=== PATIENT | male | born 1960 | race Caucasian/White ===

== ENCOUNTER 2016-10-09 07:03 | Emergency (ER) | payer OTHER ==
[~2016-10-09] VITALS: Ht 175.3 cm; Wt 88.5 kg
--- NOTE | 2016-10-09 07:23 | ED CARDIAC/CP/PALPITATIONS ---
History of Present Illness General Chief Complaint: Palpitations Stated Complaint: HEART PALPITATIONS,SOB, HTN;TROUBLE SLEEPING Source: patient Exam Limitations: no limitations Vital Signs & Intake/Output Vital Signs & Intake/Output Vital Signs Date Time Temp Pulse Resp B/P Pulse O2 O2 Flow FiO2 Ox Delivery Rate 10/09 0759 98.0 108 18 137/97 97 Room Air 10/09 0758 137/97 10/09 0758 155 137/97 10/09 0733 99 Room Air 10/09 0715 97.5 136 18 132/103 100 Room Air Allergies Coded Allergies: No Known Allergies (10/09/16) Triage Note: 56 YEAR OLD MALE TO ER WITH COMPLAINTS OF 3 DAYS OF FEELING HEART PALPTATIONS, AND SOB. DENIES CP.PT DIRECTLY TO EKG [place]. PT ALSO STATES THAT HIS BP HAS BEEN ELEVATED AND DENIES ANY HISTORY OF HTN. DR STREETER AT BEDSIDE Triage Nurses Notes Reviewed? yes HPI: Patient presents for evaluation of heart palpitations and been more or less constant since abrupt onset 2 days ago. Patient has tried Valsalva maneuvers without improvement. He states he has had multiple prior episodes like this that typically resolves with Valsalva. He denies any associated chest pain or shortness of breath. He hasn't seen a physician in close to 10 years. The heart palpitations are described as severe and appear to interfere with sleep. Past History Travel History Traveled to [place] past 21 day No Medical History Any Pertinent Medical History? see below for history Neurological: NONE EENT: cataracts Cardiovascular: NONE Respiratory: NONE Gastrointestinal: hiatal hernia Hepatic: NONE Renal: NONE Musculoskeletal: NONE Psychiatric: NONE Endocrine: NONE Blood Disorders: NONE Cancer(s): NONE STAFFING DIRECTOR/Reproductive: NONE Surgical History Surgical History: non-contributory Psychosocial History What is your primary language South [place] Tobacco Use: Never used ETOH Use: heavy use Illicit Drug Use: denies illicit drug use Family History Hx Contributory? No Review of Systems Review of Systems Constitutional: Reports: no symptoms. EENTM: Reports: no symptoms. Respiratory: Reports: no symptoms. Cardiovascular: Reports: see HPI. GI: Reports: no symptoms. Genitourinary: Reports: no symptoms. Musculoskeletal: Reports: no symptoms. Skin: Reports: no symptoms. Neurological/Psychological: Reports: no symptoms. Hematologic/Endocrine: Reports: no symptoms. Immunologic/Allergic: Reports: no symptoms. All Other Systems: Reviewed and Negative Physical Exam Physical Exam Cardiovascular: see below Comments: Gen.: Well-nourished, well-developed, no acute respiratory distress. Head: Normocephalic, atraumatic. Eyes: Normal inspection bilaterally Ears: Normal inspection bilaterally Nose: Normal inspection Throat/mouth : Moist mucosa Neck: Supple, full range of motion, no goiter Heart: Rapid but otherwise Regular rate and rhythm, no murmurs rubs or gallops Lungs: Clear to auscultation bilaterally with normal air entry Chest: Nontender Back: Normal range of motion Abdomen: Soft, nontender, nondistended, normal bowel sounds Extremities: Normal range of motion grossly, equal radial pulses, no cyanosis clubbing or edema Neurologic: Cranial nerves grossly intact, speech is clear Skin: warm and dry Psychiatric: Calm, cooperative, no apparent delusions or hallucinations Core Measures ACS in differential dx? No Severe Sepsis Present: No Septic Shock Present: No Progress Differential Diagnosis: sinus tachycardia versus SVT with a 2 to one block, DEHYDRATION, ALCOHOL WITHDRAWAL, ACUTE CORONARY SYNDROME Plan of Care: Orders Procedure Date/time Status Telemetry/Utilities Estimator And Drafter 10/09 0722 Active THYROID STIMULATING HORMONE 10/09 0722 Complete TROPONIN LEVEL 10/09 0722 Complete MAGNESIUM 10/09 0722 Complete CBC WITHOUT DIFFERENTIAL 10/09 07 Complete CALCIUM 10/09 0722 Complete BASIC METABOLIC PANEL 10/09 0722 Complete EKG 10/09 0706 Active Current Medications Sig/Beto Start time Last Medication Dose Stop Time Status Admin Metoprolol Tartrate 25 MG ONCE ONE 10/09 0930 AC (Lopressor) 10/09 0931 Laboratory Tests 10/09/16 0728: Anion Gap 11, Estimated GFR > 60, BUN/Creatinine Ratio 20.0, Glucose 115 H, Calcium 9.5, Magnesium 2.3, Troponin I 0.02, TSH 1.590, CBC w Diff NO MAN DIFF REQ, RBC 4.66 L, MCV 94.9 H, MCH 31.9 H, RDW 12.8, MPV 12.0 H, Gran % 75.2, Lymphocytes % 15.5 L, Monocytes % 7.9, Eosinophils % 0.8, Basophils % 0.6, Absolute Granulocytes 4.6, Absolute Lymphocytes 0.9 L, Absolute Monocytes 0.5, Absolute Eosinophils 0, Absolute Basophils 0, PUBS MCHC 33.6 Initial ED EKG: NARROW COMPLEX TACHYCARDIA CONSISTENT WITH svt, RATE 147 Rhythm Strip: NARROW COMPLEX TACHYCARDIA Comments: 10/09/2016 7:44:36 AM patient remains in a narrow complex tachycardia of about 147-148. He has already received a half a liter of fluid with no discernible improvement in his heart rate. We will give a dose of adenosine. 10/09/2016 7:54:11 AM Patient given 6 mg of IV adenosine without improvement. He was given a 12 mg dose with resolution of his tachycardia. Patient now denies symptoms. 10/09/2016 9:19:35 AM I have updated Holland on his test results. He remains asymptomatic. Although he states he drinks daily about 2-3 beverages he typically begins drinking in the afternoons and denies withdrawal symptoms in the past. The cause of his present mild sinus tachycardia is unclear. I've discussed his case with Dr. Peterson who will reevaluate the patient in his office for further testing. He recommends metoprolol 25 mg daily. Departure Departure Disposition: HOME OR SELF CARE Condition: Stable Clinical Impression Primary Impression: SVT (supraventricular tachycardia) Referrals: VICKIE CHOU,AJ Kelly (PCP/Family) GENARO CHOU,Lupe MCNEILL Additional Instructions: Follow-up with Dr. Peterson as soon as possible for further evaluation of your elevated heart rate. Contact Dr. Suarez's office and arrange for a general medical evaluation as soon as possible. Try to cut down on your drinking. Return if any concerns or sudden worsening. Please note that there might be incidental findings in your evaluation that are unrelated to the current emergency department visit. Please notify your primary care doctor about this emergency department visit in order to obtain and review all of the testing performed so that these incidental findings can be monitored as needed. Thank you for choosing the [facility] Emergency Department for your care. It was a pleasure to serve you today. José Streeter M.D. [facility] Departure Forms: Customer Survey General Discharge Information Prescriptions: Current Visit Scripts Metoprolol Succ XL (Toprol XL) 1 TAB PO DAILY #15 TAB Critical Care Note Critical Care Note Critical Care Time: mins: (40)
[2016-10-09 07:49] LABS: ABSOLUTE BASOPHIL COUNT 0 /CUMM (0.0-0.2); ABSOLUTE EOSINOPHIL COUNT 0 /CUMM (0.0-0.7); ABSOLUTE GRANULOCYTE CT 4.6 /CUMM (1.4-6.5); ABSOLUTE LYMPH COUNT 0.9 /CUMM (1.2-3.4); ABSOLUTE MONOCYTE COUNT 0.5 /CUMM (0.10-0.60); BASOPHIL % 0.6 % (0.0-2.0); EOSINOPHIL % 0.8 % (0-5); GRANULOCYTE % 75.2 % (42.2-75.2); HEMATOCRIT 44.3 % (42-52); MEAN CORPUSCULAR HGB 31.9 PG (27.0-31.0); MEAN CORPUSCULAR HGB CONC 33.6 G/DL (33.0-37.0); MEAN CORPUSCULAR VOLUME 94.9 FL (80.0-94.0); PLATELET COUNT 139 /CUMM (130-400); RBC DISTRIBUTION WIDTH 12.8 % (11.5-14.5); RED BLOOD CELL CT 4.66 /CUMM (4.70-6.10); WHITE BLOOD CELL COUNT 6.1 /CUMM (4.8-10.8)
[2016-10-09] MEDS ORDERED: TOPROL XL25 M1 PO (09:22)
[2016-10-09 09:47] VITALS: BP 141/74
== END 2016-10-09 09:50 ==
LOC: ERH 07:03
PROVIDERS: Emergency Medicine
DX: I47.1 Supraventricular tachycardia (principal)
CPT/HCPCS: 93005; 93010; 96374; 99291; J0153